=== PATIENT | female | born 1935 | race Caucasian/White ===

== ENCOUNTER 2016-07-02 16:40 | Emergency (ER) | payer MEDICARE, OTHER ==
[~2016-07-02] VITALS: Ht 165.1 cm; Wt 57.3 kg
[2016-07-02 16:43] VITALS: BP 162/73
[2016-07-02] MEDS ORDERED: ACETAMINOPHEN 325 MG TABLET ONE (17:17)
[2016-07-02] MEDS ORDERED: POTA10TA5 PO (17:22)
[2016-07-02] MEDS ORDERED: AMLO10TA2 PO (17:22)
[2016-07-02] MEDS ORDERED: ACETAMINOPHEN 325 MG TABLET PO ONE (17:30)
== END 2016-07-02 18:16 | disposition home or self-care (01) ==
LOC: ED 18:14
DX: S42.251A Displaced fracture of greater tuberosity of right humerus, initial encounter for closed fracture (principal); I10 Essential (primary) hypertension; Z88.6 Allergy status to analgesic agent; W19.XXXA Unspecified fall, initial encounter; Y93.89 Activity, other specified; Y92.009 Unspecified place in unspecified non-institutional (private) residence as the place of occurrence of the external cause; Y99.9 Unspecified external cause status
CPT/HCPCS: 29105; 99284